=== PATIENT | male | born 1935 | race Caucasian/White ===

== ENCOUNTER 2017-01-30 07:45 | Day surgery (SDC) | payer MEDICARE ==
[~2017-01-30] VITALS: Ht 177.8 cm; Wt 69.4 kg
[~2017-01-30 07:45] MED LIST: ALTACE5 MG PO; BAYER CHEWABLE81 MG PO; CELEXA40 MG PO; K-DUR20 MEQ PO; LASIX20 MG PO; PLAVIX75 MG PO
[2017-01-30] MEDS ORDERED: LIPITOR10 MG PO (09:45)
[2017-01-30 09:47] VITALS: BP 114/55; Ht 177.8 cm; Wt 69.4 kg
[2017-01-30 10:04] LABS: ANION GAP 9.8 mmol/L (8-16); CALCIUM 9.4 mg/dL (8.5-10.1); CARBON DIOXIDE 33.7 mmol/L (21.0-32.0); CREATININE - SERUM 1.1 mg/dL (0.6-1.3); POTASSIUM - SERUM 4.5 mmol/L (3.5-5.1)
[2017-01-30 11:50] LABS: BASOPHILS 1.1 % (0-2); EOSINOPHILS 7.1 % (0-7); HEMATOCRIT 43.9 % (42.0-54.0); HEMOGLOBIN 14.8 g/dL (13.5-17.5); IMMATURE GRANULOCYTES 0.3 % (0-5); LYMPHOCYTES 26.5 % (15-50); MCH 31.8 pg (26.0-34.0); MCHC 33.7 g/dL (31.0-37.0); MCV 94.4 fL (80.0-100.0); MONOCYTES 8.5 % (2-11); NEUTROPHILS 56.5 % (40-80); PLATELET COUNT 246 10x3/uL (130-400); RBC 4.65 10x6/uL (4.20-6.10); WBC 7.2 10x3/uL (4.8-10.8)
[2017-01-30] MEDS ORDERED: HYDROCODON-ACE1 EAC7 PO (14:02)
[2017-01-30] MEDS ORDERED: FLOMAX0.4 MG PO (14:03)
--- NOTE | 2017-01-31 07:56 | OP ---
PATIENT NAME: HILARIO ONEILL MEDICAL RECORD: [id number] :34 LOCATION:D.OPS ADMISSION DATE: SURGEON: MARION PRETTY MD DATE OF OPERATION: 01/30/2017 SURGEON: Marion Pretty MD PREOPERATIVE DIAGNOSES: 1. Left inguinal hernia. 2. Congestive heart failure. 3. Coronary artery disease. 4. Chronic obstructive pulmonary disease. 5. Sleep apnea. POSTOPERATIVE DIAGNOSES: 1. Left inguinal hernia. 2. Congestive heart failure. 3. Coronary artery disease. 4. Chronic obstructive pulmonary disease. 5. Sleep apnea. PROCEDURE PERFORMED: Left inguinal herniorrhaphy with a Bard 3DMax mesh. ANESTHESIA: General. COMPLICATIONS: None. SPECIMENS: 1. Lipoma of the cord. 2. Hernia sac. 3. Nerve. COMPLICATIONS: None. ESTIMATED BLOOD LOSS: 20 cc. OPERATIVE COURSE: After consent was obtained, the patient was taken to the operating room and placed in the supine position on the operating table. Next, general anesthesia was given via endotracheal intubation after a timeout was taken to confirm the correct patient and procedure. The left groin was prepped and draped in typical sterile fashion and Ioban dressing was placed. External landmarks were identified. A 30 cc of local anesthetic were injected for a block transverse incision was made. Dissection continued to the level of the external oblique fascia using electrocautery. Self-retaining retractor was placed. Additional lidocaine was administered below the external oblique fascia and the fascia was incised with a 15-blade scalpel. Using push cut technique with Metzenbaum scissors, the incision was extended through the external ring and towards the ASIS. Flaps were created with blunt dissection. The cord and structures were dissected off the pubic tubercle and Narinder dressing was placed. A large hernia sac was identified in the anterior medial position, it was dissected. Hernia sac was opened. There were no bowel contents inside. High ligation was performed. The hernia sac was tied off with 0 silk suture. The cord lipoma was dissected off the vessels and sent with the hernia sac for permanent pathology. A large direct hernia component was involved as well. A 2-stage repair was done due to the laxity of the conjoined tendon. The OPERATIVE REPORT [id number] HILARIO ONEILL conjoined tendon was sewn in a continuous fashion with 3-0 Vicryl suture. The conjoined tendon was sewn to the inguinal ligament, closing a direct space. Next, a Char repair was performed with Bard 3DMax mesh. It was cut to size. It was fit into the space. It was secured with interrupted 2-0 Prolene suture. The external ring was loosely recreated. Once complete, the external oblique fascia was closed with 0 Vicryl suture, recreating the external ring. The wound was copiously irrigated and suctioned. Subcutaneous tissue was then closed with 3-0 Vicryl suture. The skin was closed with 4-0 Monocryl, Mastisol and Steri-Strips. At the end of the case, all needle and instrument counts were correct. No complications occurred. Both testicles were noted to be within the scrotum at the end of the case and at this time, all needle and instrument counts were correct. No complications occurred. The patient was extubated and transferred to the PACU in stable condition. TRANSINT:[id number] Voice Confirmation ID: [id number] DOCUMENT ID: [id number] MARION PRETTY MD at 0756 CC: [id number] DICTATION DATE: 01/30/17 1408 POMOLOGY TEACHER: 01/30/17 1534 [facility] 01/30/17 [id number] [place] [address]
== END 2017-01-30 18:40 | disposition home or self-care (01) ==
LOC: D.OPS 07:45 → D.PAN 11:15 → D.OPS 11:15
PROVIDERS: Anesthesiology
DX: K40.90 Unilateral inguinal hernia, without obstruction or gangrene, not specified as recurrent (principal); D17.6 Benign lipomatous neoplasm of spermatic cord; I50.9 Heart failure, unspecified; I25.10 Atherosclerotic heart disease of native coronary artery without angina pectoris; J44.9 Chronic obstructive pulmonary disease, unspecified; G47.30 Sleep apnea, unspecified; Z01.812 Encounter for preprocedural laboratory examination

== ENCOUNTER 2018-03-21 07:20 | Outpatient (CLI) | payer MEDICARE ==
[~2018-03-21] VITALS: Ht 177.8 cm; Wt 68.2 kg
--- NOTE | ~2018-03-21 | HEMODYNAMI ---
PATIENT:HILARIO ONEILL MEDICAL RECORD: [id number] : 34 LOCATION:RUTHY ADMISSION DATE: 03/21/18 Generatedon:03/21/20189:46 Patient name: HILARIO ONEILL Patient #: [id number] SSN: D OB: 1935 Date of study: 03/21/2018 Page: Of Hemodynamic Procedure Report Patient Data Patient Demographics Procedure consent was obtained First Name: HILARIO Gender: Male Last Name: NINO : 1935 Middle Initial: TRISTEN Age: 82 year(s) Patient #: [id number] Race: Additional ID: [id number] Contact details Address: [address] [place] [address] State: [place] City: [place] Zip code: [address] Past Medical History History of disease Date Diagnosis Comments CAD CHF Peripheral vascular disease Allergies: No known allergies Admission Admission Data Admission Date: 03/21/2018 Admission Time: 7:20 Lab Results Lab Result Date: 03/21/2018 Lab Result Time: 7:55 Biochemistry Name Units Result Min Max BUN mg/dl 12 --(-*--)-- 7 18 Creatinine mg/dl 1.1 --(--*-)-- 0.6 1.3 CBC Name Units Result Min Max Hematocrit % 40.4 -*(----)-- 42 54 Hemoglobin g/dl 14 --(*---)-- 13.5 17.5 Procedure Procedure Types Cath Procedure Diagnostic Procedure [facility] w/Coronaries FFR/IVUS Intra-Coronary IVUS Initial PCI Procedure Coronary Stent Coronary Stent Initial Peripheral Cath Diagnostic Procedure Small Arms Repairer Peripheral Procedures Jgujc-Nippwmn-Gmk-Off Procedure Description Procedure Date Procedure Date: 03/21/2018 Procedure Start Time: 9:29 Procedure End Time: 9:45 Procedure Staff Name Function Timmy Dodge MD Performing Physician Erwin Dong RT Monitor Pierre Clark RN Nurse Kellie Willis RN Nurse Gwendolyn Counts RT Scrub Procedure Data Cath Procedure Fluoroscopy Diagnostic fluoroscopy Total fluoroscopy Time: 2.5 time: 2.5 min min Diagnostic fluoroscopy Total fluoroscopy dose: dose: 1046 mGy 1046 mGy Contrast Material Contrast Material Type Amount (ml) Isovue 300 95 Entry Location Entry Primary Successful Side Size Upsize Upsize Entry Closure Succes sful Closure Location (Fr) 1 (Fr) 2 (Fr) Remarks Device Remarks Femoral Right 5 Fr 6 Fr Exoseal artery Short Estimated blood loss: 10 ml Diagnostic catheters Device Type Used For End Catheter Placement MULTIPACK Pigtail 5 Fr Procedure catheter MULTIPACK JL 4.0 5Fr Procedure catheter MULTIPACK 3DRC 5Fr Procedure catheter Procedure Complications No complications Procedure Medications Medication Administration Route Dosage 0.9% NaCl I.V. 100 ml/hr Oxygen etCO2 Nasal cannula 2 l/min Lidocaine 2% added to field 20 Heparin Flush Bag added to field 2 bags (1000units/500ml NS) Versed I.V. 2 mg Fentanyl I.V. 50 mcg Heparin Bolus I.V. 4000 units Integrilin (Bolus I.V. 6.2 ml 2mg/ml) Fentanyl I.V. 50 mcg Plavix P.O. 600 mg Hemodynamics Rest HGB: 14 (g/dl) Heart Rate: 62 (bpm) Snapshots Pre Cath Intra NCS Post Cath Vital Signs Time Heart Resp SPO2 etCO2 NIBP (mmHg) Rhythm Pain Sedation Rate (ipm) (%) (mmHg) Status Level (bpm) 9:14:43 61 15 99 32.1 131/79(109) NSR 0 (11) 10(A) , No pain 9:18:53 58 10 100 30.2 145/74(119) NSR 0 (11) 10(A) , No pain 9:23:09 60 12 100 31 122/70(83) NSR 0 (11) 10(A) , No pain 9:27:23 56 11 100 40 110/50(78) NSR 0 (11) 10(A) , No pain 9:31:33 60 11 98 40 101/48(76) NSR 0 (11) 9(A) , No pain 9:35:36 63 13 98 32 112/56(73) NSR 0 (11) 9(A) , No pain 9:39:46 63 12 96 31 93/52(65) NSR 0 (11) 9(A) , No pain 9:43:50 66 12 97 34 96/55(75) NSR 0 (11) 10(A) , No pain Medications Time Medication Route Dose Verified Delivered Reason Notes Effectiveness by by 9:13:43 0.9% NaCl I.V. 100 Timmy Kellie used for ml/hr Dar Willis strategic planning manager 9:13:51 Oxygen etCO2 2 Timmy Kellie used for Nasal l/min Dar Willis procedure cannula RN 9:13:57 Lidocaine 2% added 20ml Timmy Timmy for local to vial Dar Dodge MD anesthetic field 9:14:03 Heparin Flush added 2 Timmy Timmy used for Bag to bags Dar Dodge MD procedure (1000units/500ml field NS) 9:29:54 Versed I.V. 2 mg Timmy Kellie for sedation Dar Willis RN 9:30:03 Fentanyl I.V. 50 Timmy Kellie for sedation mcg Dar Willis RN 9:36:05 Heparin Bolus I.V. 4000 Timmy Kellie for verifi ed units Dar Willis anticoagulation with Dr. JOSE Vázquez 9:38:38 Integrilin I.V. 6.2 Timmy Kellie for wasted (Bolus 2mg/ml) ml Dar Willis anticoagulation 3.8mL RN 9:38:50 Fentanyl I.V. 50 Timmy Kellie for sedation mcg Dar Willis RN 9:41:13 Plavix P.O. 600 Timmy Kellie for mg Dar Willis antiplatelet RN therapy Procedure Log Time Note 8:25:52 Time tracking: Regular hours (M-F 7:00 - 5:00) 8:25:56 Plan of Care:Hemodynamics will remain stable., Cardiac rhythm will remain stable., Comfort level will be maintained., Respiratory function will remain adequate., Patient/ family verbilizes understanding of procedure., Procedure tolerated without complication., Recovers from procedure without complications.. 8:57:13 Gwendolyn Knox RT(R) sent for patient. Start room use. 9:11:51 Patient received from Pre/Post Procedure Room to CCL 2 Alert and oriented. Tansferred to table in Supine position. 9:11:52 Warm blankets applied, and shayne hugger turned on for patient comfort. 9:11:52 Correct patient and procedure confirmed by team. 9:11:54 Signed procedure consent form obtained from patient. 9:11:55 ECG and BP/O2 sat monitors applied to patient. 9:12:24 H&P Date Dictated: 03/15/2018 Within 30 days and on chart., H&P Addendum completed by physician on day of procedure. (MUST COMPLETE FOR ALL OUTPATIENTS). 9:12:26 Pre-procedure instructions explained to patient. 9:12:26 Pre-op teaching completed and patient verbalized understanding. 9:12:27 Family in waiting room. 9:12:28 Patient NPO since Midnight. 9:12:36 Patient allergic to No known allergies 9:13:31 Vital chart was started 9:13:43 0.9% NaCl 100 ml/hr I.V. was administered by Kellie Willis RN; used for procedure; 9:13:51 Oxygen 2 l/min etCO2 Nasal cannula was administered by Kellie Willis RN; used for procedure; 9:13:57 Lidocaine 2% 20ml vial added to field was administered by Timmy Dodge MD; for local anesthetic; 9:14:03 Heparin Flush Bag (1000units/500ml NS) 2 bags added to field was administered by Timmy Dodge MD; used for procedure; 9:23:15 Baseline sample Acquired. 9:23:21 Rhythm: sinus rhythm 9:23:23 Full Disclosure recording started 9:24:08 Is the patient allergic to Iodine/contrast media? No. 9:24:09 Is patient on blood thinner?No 9:24:10 Patient diabetic? No. 9:24:14 Previous problem with sedation/anesthesia? No ? 9:24:15 Snore? No 9:24:16 Sleep apnea? No 9:24:17 Deviated septum? No 9:24:18 Opens mouth fully? Yes 9:24:18 Sticks out tongue? Yes 9:24:20 Airway obstruction? No ? 9:24:23 Dentures? Yes out 9:24:26 Pre procedure: right dorsailis pedis pulse 2+ Normal; easily identifiable; not easily obliterated 9:24:28 Patient pain scale 0/10 ?. 9:24:53 IV patent on arrival in left wrist with 0.9% NaCl at [facility]. 9:26:00 Lab Result : Creatinine 1.1 mg/dl 9::00 Lab Result : BUN 12 mg/dl 9::00 Lab Result : Hemoglobin 14 g/dl 9::00 Lab Result : Hematocrit 40.4 % 9:: Lab results completed and on chart. 9:26:04 Right groin area was prepped with chlora-prep and draped in sterile fashion 9:26: Alarms reviewed by R. N. 9::05 Sharps counted by scrub and verified by R.N. 9:26:07 Use device set Femoral Dx 9:26:09 ACIST Syringe (07318) opened to sterile field. 9:26:09 Bag Decanter (2002S) opened to sterile field. 9:26:10 Medline Cath Pack ([id number]) opened to sterile field. 9:26:11 ACIST Hand Control (94863) opened to sterile field. 9:26:12 ACIST Manifold (46957) opened to sterile field. 9:26:12 Tegaderm 4 x 4 (1626W) opened to sterile field. 9:26:14 SHEATH Prelude 5Fr 0.035 (RVK-9O-27-035) opened to sterile field. 9:26:15 DIAGNOSTIC WIRE .035 260cm J wire (763539) opened to sterile field. 9:26:16 DIAGNOSTIC Multipack 5Fr catheter set (UU5741) opened to sterile field. 9:28:36 Physician arrived 9:28:37 --------ALL STOP TIME OUT------ 9:28:37 Final Timeout: patient, procedure, and site verified with staff and physician. All members of the team are in agreement. 9:28:38 Right groin site verified by team. 9:28:43 Physical assessment completed. ASA score P 2 - A patient with mild systemic disease as per Timmy Dodge MD. 9:28:45 Sedation plan: IV Moderate Sedation Medication:Versed, Fentanyl 9::50 Zero performed for pressure channel P1 9:29:02 Procedure type changed to Cath procedure, Diagnostic procedure, LHC, LHC w/Coronaries, FFR/IVUS, Intra-Coronary IVUS Initial, PCI procedure, Coronary Stent, Coronary Stent Initial, Peripheral Cath Diagnostic Procedure, Small Arms Repairer Peripheral Procedures, Ihrof-Ocjezol-Wme-Off 9:29:06 Procedure started. 9:29:09 Local anesthetic to right femoral artery with Lidocaine 2% by Timmy Dodge MD.INITIAL ACCESS ONLY 9:29:42 A 5 Fr sheath was inserted into the Right Femoral artery 9:29:48 A MULTIPACK Pigtail 5 Fr catheter was advanced over the wire and used for Procedure. 9:29:54 Versed 2 mg I.V. was administered by Kellie Willis RN; for sedation; 9:30:03 Fentanyl 50 mcg I.V. was administered by Kellie Willis RN; for sedation; 9:30:13 LV gram done using WARE 9:30:17 Injector settings: Ml/sec: 10, Volume: 20, 9:30:21 LV hemodynamics recorded. 9:30:25 EF : 20 % 9:30:33 Abdominal angiogram w/ runoff was performed. 9:30:40 Left leg runoff performed. 9:31:15 Right leg runoff performed. 9:31:44 Catheter exchanged over wire. 9:31:49 A MULTIPACK JL 4.0 5Fr catheter was advanced over the wire and used for Procedure. 9:32:35 LCA angiography performed. 9:33:49 Catheter exchanged over wire. 9:33:53 A MULTIPACK 3DRC 5Fr catheter was advanced over the wire and used for Procedure. 9:34:40 Catheter removed. 9:35:06 Brielle Joanna Eagleye IVUS Catheter (76997Z) opened to sterile field. 9:35:07 CHOICE PT Extra Support 182cm wire ([id number]) opened to sterile field. 9:35:07 INFLATOR Merit BasixCompak (VH2012) opened to sterile field. 9:35:09 SHEATH Prelude 6Fr 0.035 (OVZ-4Z-62-035) opened to sterile field. 9:35:37 Sheath upsized to a 6 Fr Short. 9:35:56 GUIDE 6FR XBLAD 4.0 catheter ([id number]) opened to sterile field. 9:36:03 6 Fr xblad 4 guide catheter was inserted over the wire 9:36:05 Heparin Bolus 4000 units I.V. was administered by Kellie Willis RN; for anticoagulation; verified with Dr. Dodge 9:36:53 choice pt es wire advanced. 9:36:54 Wire advanced across lesion. 9:37:04 IVUS catheter advanced over wire. 9:37:05 IVUS pass to LAD lesion performed. 9:38:38 Integrilin (Bolus 2mg/ml) 6.2 ml I.V. was administered by Kellie Willis RN; for anticoagulation; wasted 3.8mL 9:38:50 Fentanyl 50 mcg I.V. was administered by Kellie Willis RN; for sedation; 9:39:11 IVUS catheter removed over wire. 9:40:05 Place stent Inflation Number: 1 A SHERIN RX 3.5 x 30 stent ([id number]) was prepped and advanced across the Prox LAD. The stent was deployed at 19 WILLA for 0:10 (min:sec). 9:40:14 Stent catheter was removed intact over wire. 9:40:15 Wire removed. 9:40:15 Guide catheter removed. 9:40:20 EXOSEAL 6Fr (EX600) opened to sterile field. 9:40:29 Sheath removed intact; hemostasis achieved with Exoseal to the Right Femoral artery. 9:40:31 Procedure ended.(Physican Out) 9:41:13 Plavix 600 mg P.O. was administered by Kellie Willis RN; for antiplatelet therapy; 9:41:59 Fluoroscopy time 02.50 minutes. 9:42:03 Fluoroscopy dose: 1046 mGy 9:42:03 Flurop Dose total: 1046 9:42:09 Contrast amount:Isovue 300 95ml. 9:42:10 Sharps counted by scrub and verified by R.N. 9:42:12 Insertion/operative site no bleeding no hematoma. 9:42:15 Post-op/insertion site Right Femoral artery dressed using a 4 x 4 and Tegaderm. 9:42:18 Post right femoral artery:stable, soft, clean and dry 9:44:15 Post Procedure Pulses reassessed and unchanged 9:44:18 Post-procedure physical assessment completed. ASA score P 2 - A patient with mild systemic disease as per Timmy Dodge MD. 9:44:20 Post procedure rhythm: unchanged. 9:44:22 Estimated blood loss: 10 ml 9:44:23 Post procedure instruction explained to patient.Patient verbalizes understanding. 9:44:23 Patient needs reinforcement of post procedure teaching. 9:45:21 Procedure and supply charges have been captured, reviewed, submitted and are correct. 9:45:23 Procedure Complication : No complications 9:45:25 Vital chart was stopped 9:45:25 See physician's report for complete and final results. 9:45:26 Report given to Pre/Post Procedure Room. 9:45:32 Patient transfered to Pre/Post Procedure Room with Stretcher. 9:45:34 Procedure ended. 9:45:34 Full Disclosure recording stopped 9:45:38 End room use (Document Last) Intervention Summary Intervention Notes Time ActionType Lesion and Equipment Used Action# Pressure Duration Attributes 9:40:[address] Place stent Prox LAD SHERIN RX 3.5 x 1 19 00:10 30 stent ([id number]) Device Usage Item Name Manufacture Quantity Catalog Number Hospital Part Current Minimal Lot# / Charge Number Stock Stock Serial# Code ACIST Syringe Acist 1 75176 387352 [id number] [id number] 20 (97438) Medical Systems [employer] Bag Decanter Microtek 1 2001S 053670 40741 083256 5 (2001S) Medical Inc. Medline Cath Cardinal 1 [id number] 035061 64465 269046 5 Pack Health ([id number]) ACIST Hand Acist 1 38749 889542 688978 297595 5 Control (13079) Medical [employer] Inc ACIST Manifold Acist 1 28993 459998 569669 388500 5 (98378) Medical Systems Inc Tegaderm 4 x 4 3M 1 1626W 209787 784583 387220 5 (1626W) SHEATH Prelude Merit 1 IVH-3U-66-035 085734 590780 189822 5 5Fr 0.035 Medical (QCN-6P-44-035) DIAGNOSTIC WIRE St Jason 1 094809 736361 721683 844975 30 .035 260cm J wire (655098) DIAGNOSTIC Cardinal 1 NG7404 530377 67012 104785 30 Multipack 5Fr Health catheter set (NH4107) MULTIPACK Cardinal 1 974862 5 Pigtail 5 Fr Health catheter MULTIPACK JL Cardinal 1 724730 5 4.0 5Fr Health catheter MULTIPACK 3DRC Cardinal 1 310491 5 5Fr catheter [facility] 1 14266R 489009 999403 118430 8 Joanna Eagleye IVUS Catheter (31199W) CHOICE PT Extra Ebony 1 [id number] 428445 922081 686969 5 Support 182cm Scientific wire ([id number]) INFLATOR Merit Merit 1 SX4300 164188 086766 212104 15 BasixCompak Medical (HJ7215) SHEATH Prelude Merit 1 IGM-4Z-15-35 798157 5395885 160339 5 6Fr 0.035 Medical (WIE-0C-40-035) GUIDE 6FR XBLAD Cardinal 1 [id number] 976401 464032 734090 3 4.0 catheter Stamped ([id number]) SHERIN RX 3.5 x Medtronic 1 [id number] 197311 3281204 785482 5 [id number] 30 stent ([id number]) EXOSEAL 6Fr Cardinal 1 EX600 871916 742801 820809 10 (EX600) Health Signature Audit [place] Stage Time Signature Unsigned Intra-Procedure 03/21/2018 Erwin Dong 9:46:40 AM RT(R) Signatures Monitor : Erwin Dong RT Signature : Date : Time : [id number] [place] [address]
--- NOTE | ~2018-03-21 | DS ---
PATIENT:HILARIO BAUTISTA :33 MEDICAL RECORD: [id number] DISCHARGE SUMMARY ADMISSION DATE: 03/21/18 DISCHARGE DATE: 03/22/18 DISCHARGE DIAGNOSES: 1. Unstable angina. 2. Coronary artery disease. 3. PTCA and stent of LAD and RCA this admission. 4. Ischemic cardiomyopathy. 5. Hypertension. 6. Hyperlipidemia. HOSPITAL COURSE: Mr. Bautista presents with anginal symptomatology, found to have significant disease of the RCA and LAD, underwent successful PTCA and stent of both territories. He was discharged home with the addition of aspirin and Plavix to his medical regimen. Will follow up with [facility] in 1 month. TRANSINT:[id number] Voice Confirmation ID: [id number] DOCUMENT ID: [id number] BALA MAKI MD at 0924 CC: [id number] DICTATION DATE: 03/22/1858 [employer] FIELD SUPERVISOR: 03/22/18917 DIS IN 03/22/18 [id number] [place] [address]
--- NOTE | ~2018-03-21 | OP ---
PATIENT NAME: HILARIO ONEILL MEDICAL RECORD: [id number] :34 LOCATION:[facility] ADMISSION DATE:03/21/18 SURGEON: BALA MAKI MD DATE OF OPERATION: 03/21/2018 PROCEDURES: 1. PTCA stent LAD. 2. Intravascular ultrasound of the LAD. 3. Left heart catheterization. 4. Selective coronary angiography. 5. Left ventriculogram. INDICATION: Angina and coronary artery disease. PROCEDURE IN DETAIL: After informed consent was obtained and after a detailed description of risks, benefits as well as alternative therapies, the patient elected to proceed with angiogram and angioplasty. The right femoral area was prepped and draped in normal sterile fashion. Right femoral artery was cannulated via modified Seldinger technique with placement of 6-Romansh sheath. All catheters exchanged through this sheath. FINDINGS: Left ventriculogram was performed in a standard 30-degree WARE view, reveals global hypokinesis throughout all segments. Overall ejection fraction markedly reduced at 20% to 25%. SELECTIVE CORONARY ANGIOGRAPHY: 1. Left main is with no significant angiographic disease. 2. Left anterior descending has greater than 80% stenosis throughout the proximal vessel confirmed by intravascular ultrasound. After this, there is a previously placed stent that is widely patent and the remainder of the LAD has no significant disease. 3. The left circumflex has moderate irregularities, but no flow-limiting stenosis. 4. Right coronary artery has at least 75% in-stent restenosis proximally. PTCA STENT OF THE LEFT ANTERIOR DESCENDING: The stent used was a 3.5 x 30 mm Mike. Result was 0% residual stenosis. OVERALL IMPRESSION: Successful percutaneous transluminal coronary angioplasty stent of the left anterior descending going from 80% initial stenosis confirmed by intravascular ultrasound to 0% residual stenosis. PLAN: PTCA stent of the RCA in the near future. TRANSINT:[id number] Voice Confirmation ID: [id number] DOCUMENT ID: [id number] BALA MAKI MD at 0924 CC: [id number] DICTATION DATE: 03/21/18 0946 HAND MODEL: 03/21/18 1051 DIS IN 03/22/18 [address] [place] [address]
--- NOTE | ~2018-03-21 | OP ---
PATIENT NAME: HILARIO ONEILL MEDICAL RECORD: [id number] :34 LOCATION:MARY Navarrete[facility]05 ADMISSION DATE:03/21/18 SURGEON: BALA MAKI MD DATE OF OPERATION: 03/22/2018 DATE OF SERVICE: 03/22/2018 PROCEDURES: 1. PTCA stent of RCA. 2. Intravascular ultrasound. 3. Selective coronary angiography. PROCEDURE IN DETAIL: After informed consent was obtained and after a detailed description of the risks, benefits as well as alternative therapies, the patient elected to proceed with angiogram and angioplasty. The left femoral area was prepped and draped in normal sterile fashion. Left femoral artery was cannulated via modified Seldinger technique with placement of 6-Romanian sheath. All catheters exchanged through this sheath. FINDINGS: The right coronary has greater than 80% in-stent restenosis proximally confirmed by intravascular ultrasound. This was addressed with a 4.0 x 15 mm Mike stent taken at 23 atmospheres. Result was 0% residual stenosis. OVERALL IMPRESSION: Successful percutaneous transluminal coronary angioplasty stent of the right coronary artery going from greater than 80% in-stent restenosis to 0% residual. TRANSINT:[id number] Voice Confirmation ID: [id number] DOCUMENT ID: [id number] BALA MAKI MD at 0924 CC: [id number] DICTATION DATE: 03/22/18 0859 INTELLECTUAL PROPERTY MANAGER: 03/22/18 0911 DIS IN 03/22/18 [id number] [place] [address]
--- NOTE | ~2018-03-21 | HEMODYNAMI ---
PATIENT:HILARIO ONEILL MEDICAL RECORD: [id number] : 33 [id number] ADMISSION DATE: 03/21/18 Generatedon:03/22/20189:01 Patient name: HILARIO ONEILL Patient #: [id number] SSN: D OB: 1935 Date of study: 03/22/2018 Page: Of Hemodynamic Procedure Report Patient Data Patient Demographics Procedure consent was obtained First Name: HILARIO Gender: Male Last Name: NINO : 1935 [facility] Initial: TRISTEN Age: 82 year(s) Patient #: [id number] Race: Additional ID: [id number] Contact details [address]: [address] [place] [address] State: [place] City: [place] Zip code: [address] Past Medical History History of disease Date Diagnosis Comments CAD CHF Peripheral vascular disease Allergies: No known allergies Admission Admission Data Admission Date: 03/21/2018 Admission Time: 13:04 Room #: D.2114 Lab Results Lab Result Date: 03/21/2018 Lab Result Time: 7:55 Biochemistry Name Units Result Min Max BUN mg/dl 12 --(-*--)-- 7 18 Creatinine mg/dl 1.1 --(--*-)-- 0.6 1.3 CBC Name Units Result Min Max Hematocrit % 40.4 -*(----)-- 42 54 Hemoglobin g/dl 14 --(*---)-- 13.5 17.5 Procedure Procedure Types Cath Procedure Diagnostic Procedure FFR/IVUS Intra-Coronary IVUS Initial PCI Procedure Coronary Stent Coronary Stent Initial Procedure Description Procedure Date Procedure Date: 03/22/2018 Procedure Start Time: 8:50 Procedure End Time: 8:57 Procedure Staff Name Function Timmy Dodge MD Performing Physician Erwin Dong RT Monitor Patience Pat RT Scrub Pierre Clark RN Nurse Kellie Willis RN Nurse Procedure Data Cath Procedure Fluoroscopy Diagnostic fluoroscopy Total fluoroscopy Time: 1.5 time: 1.5 min min Diagnostic fluoroscopy Total fluoroscopy dose: 60 dose: 60 mGy mGy Contrast Material Contrast Material Type Amount (ml) Isovue 300 20 Entry Location Entry Primary Successful Side Size Upsize Upsize Entry Closure Succes sful Closure Location (Fr) 1 (Fr) 2 (Fr) Remarks Device Remarks Femoral Left 6 Fr Exoseal artery Short Estimated blood loss: 10 ml Procedure Complications No complications Procedure Medications Medication Administration Route Dosage 0.9% NaCl I.V. 100 ml/hr Oxygen etCO2 Nasal cannula 2 l/min Lidocaine 2% added to field 20 Heparin Flush Bag added to field 2 bags (1000units/500ml NS) Versed I.V. 1 mg Fentanyl I.V. 50 mcg Heparin Bolus I.V. 4000 units Versed I.V. 2 mg Fentanyl I.V. 50 mcg Hemodynamics Rest HGB: 14 (g/dl) Heart Rate: 61 (bpm) Snapshots Pre Cath Intra NCS Post Cath Vital Signs Time Heart Resp SPO2 etCO2 NIBP Rhythm Pain Sedation Rate (ipm) (%) (mmHg) (mmHg) Status Level (bpm) 8:20:52 71 23 96 23.3 114/55(89) NSR 0 (11) 10(A) , No pain 8:25:06 75 16 98 25 102/54(71) NSR 0 (11) 10(A) , No pain 8:29:11 73 16 97 25.2 95/60(80) NSR 0 (11) 10(A) , No pain 8:33:17 71 14 97 27 90/57(83) NSR 0 (11) 10(A) , No pain 8:37:21 71 12 95 25 98/54(78) NSR 0 (11) 10(A) , No pain 8:41:27 73 12 96 30 88/57(78) NSR 0 (11) 10(A) , No pain 8:45:26 70 13 96 32 104/65(93) NSR 0 (11) 10(A) , No pain 8:49:42 69 17 99 21.8 115/25(59) NSR 0 (11) 10(A) , No pain 8:53:56 76 12 95 25 105/53(81) NSR 0 (11) 9(A) , No pain 8:58:06 78 10 96 26 93/52(73) NSR 0 (11) 10(A) , No pain Medications Time Medication Route Dose Verified Delivered Reason Notes Effectiveness by by 8:12:47 0.9% NaCl I.V. 100 Timmy Kellie used for ml/hr Dar Willis child and youth program assistant 8:12:55 Oxygen etCO2 2 Timmy Kellie used for Nasal l/min Dar Willis procedure cannula RN 8:13:01 Lidocaine 2% added 20ml Timmy Kellie used for to vial Dar Willis procedure field RN 8:13:07 Heparin Flush added 2 Timmy Kellie used for Bag to bags Dar Willis procedure (1000units/500ml field RN NS) 8:47:01 Versed I.V. 1 mg Timmy Kellie for sedation Dar Willis RN 8:47:09 Fentanyl I.V. 50 Timmy Kellie for sedation mcg Dar Willis RN 8:51:46 Heparin Bolus I.V. 4000 Timmy Kellie for units Dar Willis anticoagulation RN 8:52:30 Versed I.V. 2 mg Timmy Kellie for sedation Dar Willis RN 8:52:35 Fentanyl I.V. 50 Timmy Kellie for sedation mcg Dar Willis program production specialist Log Time Note 7:57:46 Time tracking: Regular hours (M-F 7:00 - 5:00) 7:57:50 Plan of Care:Hemodynamics will remain stable., Cardiac rhythm will remain stable., Comfort level will be maintained., Respiratory function will remain adequate., Patient/ family verbilizes understanding of procedure., Procedure tolerated without complication., Recovers from procedure without complications.. 8:04:19 Pierre Clark RN sent for patient. Start room use. 8:12:47 0.9% NaCl 100 ml/hr I.V. was administered by Kellie Willis RN; used for procedure; 8:12:55 Oxygen 2 l/min etCO2 Nasal cannula was administered by Kellie Willis RN; used for procedure; 8:13:01 Lidocaine 2% 20ml vial added to field was administered by Kellie Willis RN; used for procedure; 8:13:01 Patient received from PCU to [facility] Alert and oriented. Tansferred to table in Supine position. 8:13:02 Warm blankets applied, and shayne hugger turned on for patient comfort. 8:13:02 Correct patient and procedure confirmed by team. 8:13:03 Signed procedure consent form obtained from patient. 8:13:04 ECG and BP/O2 sat monitors applied to patient. 8:13:05 Pre-procedure instructions explained to patient. 8:13:05 Pre-op teaching completed and patient verbalized understanding. 8:13:07 Heparin Flush Bag (1000units/500ml NS) 2 bags added to field was administered by Kellie Willis RN; used for procedure; 8:13:22 H&P Date Dictated: 03/21/2018 Within 30 days and on chart.. 8:19:46 Vital chart was started 8:24:46 Family in waiting room. 8:24:47 Patient NPO since Midnight. 8:24:53 Patient allergic to No known allergies 8:24:54 Is the patient allergic to Iodine/contrast media? No. 8:24:55 Is patient on blood thinner?Yes 8:24:57 ACC The patient was administered the following blood thiners within the last 24 hours: ACCPlavix 8:24:59 Patient diabetic? No. 8:25:01 Previous problem with sedation/anesthesia? No ? 8:25:03 Snore? No 8:25:03 Sleep apnea? No 8:25:04 Deviated septum? No 8:25:05 Opens mouth fully? Yes 8:25:05 Sticks out tongue? Yes 8:25:06 Airway obstruction? No ? 8:25:09 Dentures? Yes out 8:25:12 Pre procedure: left dorsailis pedis pulse 2+ Normal; easily identifiable; not easily obliterated 8:25:14 Patient pain scale 0/10 ?. 8:25:18 IV patent on arrival in left antecubital with 0.9% NaCl at [facility]. 8:25:24 Lab results completed and on chart. 8:25:27 Left groin area was prepped with chlora-prep and draped in sterile fashion 8:25:28 Alarms reviewed by R. N. 8:25:28 Sharps counted by scrub and verified by R.N. 8:25:34 ACIST Syringe (86915) opened to sterile field. 8:25:35 Bag Decanter () opened to sterile field. 8:25:35 Medline Cath Pack ([id number]) opened to sterile field. 8:25:36 ACIST Hand Control (85843) opened to sterile field. 8:25:36 ACIST Manifold (26225) opened to sterile field. 8:25:37 Tegaderm 4 x 4 (1626W) opened to sterile field. 8:25:43 DIAGNOSTIC WIRE .035 260cm J wire (123913) opened to sterile field. 8:26:02 INFLATOR Merit BasixCompak (JE6607) opened to sterile field. 8:26:03 CHOICE PT Extra Support 182cm wire ([id number]) opened to sterile field. 8:26:04 SHEATH Prelude 6Fr 0.035 (JPJ-3F-07-035) opened to sterile field. 8:28:38 Baseline sample Acquired. 8:28:46 Baseline sample Acquired. 8:30:13 Zero performed for pressure channel P1 8:44:29 Physician arrived 8:44:31 --------ALL STOP TIME OUT------ 8:44:32 Final Timeout: patient, procedure, and site verified with staff and physician. All members of the team are in agreement. 8:44:34 Left groin site verified by team. 8:44:37 Physical assessment completed. ASA score P 2 - A patient with mild systemic disease as per Timmy Dodge MD. 8:44:39 Sedation plan: IV Moderate Sedation Medication:Versed, Fentanyl 8:47:01 Versed 1 mg I.V. was administered by Kellie Willis RN; for sedation; 8:47:09 Fentanyl 50 mcg I.V. was administered by Kellie Willis RN; for sedation; 8:50:13 Procedure started. 8:50:13 Full Disclosure recording started 8:50:16 Local anesthetic to left femerol artery with Lidocaine 2% by Timmy Dodge MD.INITIAL ACCESS ONLY 8:50:26 A 6 Fr Short sheath was inserted into the Left Femoral artery 8:50:40 [place] IVUS Catheter (47993E) opened to sterile field. 8:51:14 GUIDE 6FR 3DRC SH catheter ([id number]) opened to sterile field. 8:51:23 6 Fr 3drc sh guide catheter was inserted over the wire 8:51:26 choice pt es wire advanced. 8:51:46 Heparin Bolus 4000 units I.V. was administered by Kellie Willis RN; for anticoagulation; 8:52:01 Procedure type changed to Cath procedure, Diagnostic procedure, FFR/IVUS, Intra-Coronary IVUS Initial, PCI procedure, Coronary Stent, Coronary Stent Initial 8:52:04 Wire advanced across lesion. 8:52:10 IVUS catheter advanced over wire. 8:52:14 IVUS pass to RCA lesion performed. 8:52:20 IVUS catheter removed over wire. 8:52:30 Versed 2 mg I.V. was administered by Kellie Willis RN; for sedation; 8:52:35 Fentanyl 50 mcg I.V. was administered by Kellie Willis RN; for sedation; 8:54:25 Place stent Inflation Number: 1 A SHERIN RX 4.0 x 15 stent ([id number]) was prepped and advanced across the Prox RCA. The stent was deployed at 23 WILLA for 0:10 (min:sec). 8:54:51 Stent catheter was removed intact over wire. 8:54:52 Wire removed. 8:54:52 Guide catheter removed. 8:54:58 EXOSEAL 6Fr (EX600) opened to sterile field. 8:55:05 Sheath removed intact; hemostasis achieved with Exoseal to the Left Femoral artery. 8:55:06 Procedure ended.(Physican Out) 8:56:38 Fluoroscopy time 01.50 minutes. 8:56:42 Flurop Dose total: 60 8:56:42 Fluoroscopy dose: 60 mGy 8:56:48 Contrast amount:Isovue 300 20ml. 8:56:53 Sharps counted by scrub and verified by R.N. 8:56:54 Insertion/operative site no bleeding no hematoma. 8:56:56 Post-op/insertion site Left Femoral artery dressed using a 4 x 4 and Tegaderm. 8:57:01 Post left femerol artery:stable, soft, clean and dry 8:57:03 Post Procedure Pulses reassessed and unchanged 8:57:06 Post-procedure physical assessment completed. ASA score P 2 - A patient with mild systemic disease as per Timmy Dodge MD. 8:57:08 Post procedure rhythm: unchanged. 8:57:10 Estimated blood loss: 10 ml 8:57:11 Post procedure instruction explained to patient.Patient verbalizes understanding. 8:57:11 Patient needs reinforcement of post procedure teaching. 8:57:35 Procedure and supply charges have been captured, reviewed, submitted and are correct. 8:57:37 Procedure Complication : No complications 8:57:45 Vital chart was stopped 8:57:46 See physician's report for complete and final results. 8:57:47 Report given to Pre/Post Procedure Room. 8:57:50 Patient transfered to Pre/Post Procedure Room with Stretcher. 8:57:52 Procedure ended. 8:57:52 Full Disclosure recording stopped 8:57:54 End room use (Document Last) Intervention Summary Intervention Notes Time ActionType Lesion and Equipment Used Action# Pressure Duration Attributes 8:54:25 Place stent Prox RCA SHERIN RX 4.0 x 1 23 00:10 15 stent ([id number]) Device Usage Item Name Manufacture Quantity Catalog Number Hospital Part Current Minimal Lot# / Charge Number Stock Stock Serial# Code ACIST Syringe Acist 1 13207 523305 611937 858135 20 (05717) [employer] Bag Decanter Microtek 1 2002S 591662 18008 533550 5 (2001S) Medical Inc[employer] Medline Cath Cardinal 1 [id number] 949758 99535 355775 5 [facility] ([id number]) ACIST Hand Acist 1 51060 997072 214821 429653 5 Control (72929) [employer] ACIST Manifold Acist 1 05121 385169 080224 899166 5 (59748) [employer] Tegaderm 4 x 4 3M 1 1626W 752700 866589 985120 5 (1626W) DIAGNOSTIC WIRE St Jason 1 497673 921157 229248 781628 30 .035 260cm J wire (822622) INFLATOR Merit Merit 1 [id number] 957880 007275 370620 15 [employer] (LO3524) CHOICE PT Extra Long [address] 1 [id number] 571816 960346 223371 5 Support 182cm Scientific wire ([id number]) SHEATH Prelude Merit 1 [id number]-[id number]-[id number] 499839 0870769 727010 5 6Fr 0.035 Medical ([id number]-0F-39-035) [employer]ill A[employer] 1 31544P 184934 933327 947457 8 [place] IVUS Catheter (84994E) GUIDE 6FR 3DRC Medtronic 1 [id number] 211385 932089 288099 1 SH catheter ([id number]) SHERIN RX 4.0 x Medtronic 1 [id number] 573108 3623676 832153 5 [id number] 15 stent ([id number]) EXOSEAL 6Fr Cardinal 1 EX600 844770 580398 182090 10 (EX600) Health Signature Audit [place] Stage Time Signature Unsigned Intra-Procedure 03/22/2018 Erwin Dong 9:01:33 AM RT(R) Signatures Monitor : Erwin Dong RT Signature : Date : Time : [place] [address] [place] [address]
[~2018-03-21 07:20] MED LIST changes: +FLOMAX0.4 MG PO; +HYDROCODON-ACE1 EAC7 PO; +LIPITOR10 MG PO
[2018-03-21 07:54] VITALS: BP 146/77; BMI 21.5
[2018-03-21 08:05] LABS: BASOPHILS 1.2 % (0-2); EOSINOPHILS 7.8 % (0-7); HEMATOCRIT 40.4 % (42.0-54.0); IMMATURE GRANULOCYTES 0.3 % (0-5); LYMPHOCYTES 30.3 % (15-50); MCH 32.2 pg (26.0-34.0); MCHC 34.7 g/dL (31.0-37.0); MCV 92.9 fL (80.0-100.0); MEAN PLATELET VOLUME 10.8 fL (7.4-10.4); MONOCYTES 8.5 % (2-11); NEUTROPHILS 51.9 % (40-80); PLATELET COUNT 215 10x3/uL (130-400); RBC 4.35 10x6/uL (4.20-6.10); RDW 13.7 % (11.5-14.5); WBC 6.5 10x3/uL (4.8-10.8)
[2018-03-21 08:13] LABS: CALCIUM 8.8 mg/dL (8.5-10.1); CARBON DIOXIDE 31.1 mmol/L (21.0-32.0); CREATININE - SERUM 1.1 mg/dL (0.6-1.3); POTASSIUM - SERUM 4.1 mmol/L (3.5-5.1)
[2018-03-21 13:09] VITALS: BP 131/59; Ht 177.8 cm; Wt 68.2 kg
[2018-03-21 20:00] VITALS: BP 139/65
[2018-03-22 00:46] VITALS: BP 125/64
[2018-03-22 04:00] VITALS: BP 121/88
[2018-03-22] MEDS ORDERED: PLAVIX75 MG PO (09:04)
[2018-03-22] MEDS ORDERED: BAYER CHEWABLE81 MG PO (09:19)
== END 2018-03-22 12:57 | disposition home or self-care (01) ==
LOC: OBSVTIME → D.CATH 07:20 → D.M2 13:04 → D.CATH 13:04 → D.CLR 13:04 → D.M2 13:05 → OBSVTIME 14:00 → D.CLR 03-22 09:02 → D.M2 03-22 09:02 → D.CLR 03-22 12:57 → D.CATH 03-22 12:57
PROVIDERS: Internal Medicine Interventional Cardiology
DX: I25.110 Atherosclerotic heart disease of native coronary artery with unstable angina pectoris (principal); Z95.5 Presence of coronary angioplasty implant and graft; T82.855A Stenosis of coronary artery stent, initial encounter; Y83.8 Other surgical procedures as the cause of abnormal reaction of the patient, or of later complication, without mention of misadventure at the time of the procedure; I25.5 Ischemic cardiomyopathy; I10 Essential (primary) hypertension; E78.5 Hyperlipidemia, unspecified
CPT/HCPCS: 92978 ×2; 93458; C9600 ×2